=== PATIENT | male | born 1955 | race Asian ===

== ENCOUNTER 2020-12-06 08:39 | Day surgery (SDC) | payer MEDICARE, MEDICAID ==
[~2020-12-06] VITALS: Ht 167.6 cm; Wt 66.6 kg
[2020-12-06] MEDS ORDERED: INSU100I31 SQ (09:05)
[2020-12-06] MEDS ORDERED: FLO0.4C PO (09:05)
[2020-12-06] MEDS ORDERED: SUCR1TAB PO (09:05)
[2020-12-06] MEDS ORDERED: normal saline 1000ml 1,000 ML IV PRN (09:05)
[2020-12-06] MEDS ORDERED: PANT40TA54 PO (09:05)
[2020-12-06] MEDS ORDERED: HYDR-3964 PO (09:05)
[2020-12-06] MEDS ORDERED: PARO10TA4 PO (09:05)
[2020-12-06] MEDS ORDERED: TRAZ-251 PO (09:05)
[2020-12-06] MEDS ORDERED: ASPI-1053 PO (09:05)
[2020-12-06] MEDS ORDERED: CARV25TA3 PO (09:05)
[2020-12-06] MEDS ORDERED: ISOS30TA9 PO (09:05)
[2020-12-06] MEDS ORDERED: SIMV-45 PO (09:05)
[2020-12-06] MEDS ORDERED: LIRA0.6P2 SQ (09:05)
[2020-12-06 09:20] VITALS: BP 118/80
[2020-12-06 09:42] LABS: ALBUMIN 3.5 G/DL (3.4-5.0); ANION GAP 7 (8-16); BLOOD UREA NITROGEN 28 MG/DL (7-18); BUN/CREATININE RATIO 6.3 (5.4-32.0); CALCIUM 8.1 MG/DL (8.5-10.1); CHLORIDE 103 MMOL/L (99-107); CREATININE 4.48 MG/DL (0.60-1.10); GLUCOSE 130 MG/DL (70-104); SODIUM 142 MMOL/L (135-145); eGFR 13 ML/MIN
[2020-12-06 10:10] LABS: BASOPHILS % (AUTO) 0.5 % (0-1); EOSINOPHILS # (AUTO) 0.3 X10'3 (0-0.9); HEMATOCRIT 33.1 % (42.0-52.0); HEMOGLOBIN 11.2 g/dl (14.0-17.9); LYMPHOCYTES # (AUTO) 1.3 X10'3 (1.1-4.8); LYMPHOCYTES % (AUTO) 18.5 % (21-51); MEAN CORPUSCULAR HEMOGLOBIN 29.9 PG (27.0-31.0); MEAN CORPUSCULAR HGB CONC 33.8 g/dL (33.0-36.5); MEAN CORPUSCULAR VOLUME 88.6 FL (78-98); MEAN PLATELET VOLUME 6.5 FL (7.4-10.4); MONOCYTES # (AUTO) 0.7 X10'3 (0-0.9); MONOCYTES % (AUTO) 10.9 % (2-12); NEUTROPHILS # (AUTO) 4.5 X10'3 (1.8-7.7); NEUTROPHILS % (AUTO) 66.1 % (42-75); PLATELET COUNT 212 X10'3 (140-440); RED BLOOD COUNT 3.74 X10'6 (4.70-6.10); RED CELL DISTRIBUTION WIDTH 14.3 % (11.5-14.5); WHITE BLOOD COUNT 6.8 X10'3 (4.5-11.0)
[2020-12-06] MEDS ORDERED: LIDOcaine 1%/PF 5ML 10 MG/ML VIAL ONE (10:48)
[2020-12-06] MEDS ORDERED: fentaNYL/PF 50MCG/1 ML 2ML syringe ONE ×2 (10:48→11:42)
[2020-12-06] MEDS ORDERED: midazolam 1 mg/ML 2ml injection ONE ×3 (10:48→12:03)
[2020-12-06] MEDS ORDERED: heparin 1,000 UNITS/NS 500ml 500 ML ONE (10:48)
[2020-12-06] MEDS ORDERED: iohexol 300mg/ml 100ml inj. ONE (10:48)
[2020-12-06] MEDS ORDERED: heparin 1,000unit/ml 10ml vial 10 ML ONE (11:38)
[2020-12-06 12:45] VITALS: BP 120/78
[2020-12-06 13:00] VITALS: BP 140/79
[2020-12-06 13:15] VITALS: BP 146/75
[2020-12-06 13:30] VITALS: BP 149/85
[2020-12-06 13:45] VITALS: BP 155/80
== END 2020-12-06 13:55 | disposition home or self-care (01) ==
LOC: SSTAY O 08:39
PROVIDERS: ATTEND Preventive Medicine Aerospace Medicine
DX: T82.858A Stenosis of other vascular prosthetic devices, implants and grafts, initial encounter (principal); E11.22 Type 2 diabetes mellitus with diabetic chronic kidney disease; I13.2 Hypertensive heart and chronic kidney disease with heart failure and with stage 5 chronic kidney disease, or end stage renal disease; N18.6 End stage renal disease; I50.9 Heart failure, unspecified; E78.5 Hyperlipidemia, unspecified; G47.30 Sleep apnea, unspecified; F17.210 Nicotine dependence, cigarettes, uncomplicated; Z95.0 Presence of cardiac pacemaker; Y83.8 Other surgical procedures as the cause of abnormal reaction of the patient, or of later complication, without mention of misadventure at the time of the procedure; Y92.89 Other specified places as the place of occurrence of the external cause
CPT/HCPCS: 36415; 36901; 80048; 82948; 85025; 85610; 99152; 99153; C1769; C1894; J1644; J2250; J3010; Q9967

== ENCOUNTER 2021-07-18 08:27 | Day surgery (SDC) | payer MEDICARE, MEDICAID ==
[2021-07-18] VITALS (7 sets, daily range): BP systolic 146–166; BP diastolic 80–106
[~2021-07-18] VITALS: Ht 167.6 cm; Wt 65.6 kg
[~2021-07-18 08:27] MED LIST: ASPI-1053 PO; CARV25TA3 PO; FLO0.4C PO; HYDR-3964 PO; INSU100I31 SQ; ISOS30TA9 PO; LIRA0.6P2 SQ; PANT40TA54 PO; PARO10TA4 PO; SIMV-45 PO; SUCR1TAB PO; TRAZ-251 PO
[2021-07-18] MEDS ORDERED: normal saline 1000ml 1,000 ML IV PRN (08:55)
[2021-07-18] MEDS ORDERED: METO5TAB98 PO (09:08)
[2021-07-18 09:13] LABS: BASOPHILS % (AUTO) 0.6 % (0-1); EOSINOPHILS # (AUTO) 0.2 X10'3 (0-0.9); EOSINOPHILS % (AUTO) 2.3 % (0-6); HEMATOCRIT 33.4 % (42.0-52.0); LYMPHOCYTES % (AUTO) 12.1 % (21-51); MEAN CORPUSCULAR HEMOGLOBIN 29.6 PG (27.0-31.0); MEAN CORPUSCULAR HGB CONC 32.9 g/dL (33.0-36.5); MEAN CORPUSCULAR VOLUME 89.9 FL (78-98); MEAN PLATELET VOLUME 6.3 FL (7.4-10.4); MONOCYTES # (AUTO) 0.7 X10'3 (0-0.9); MONOCYTES % (AUTO) 8.3 % (2-12); NEUTROPHILS # (AUTO) 6.2 X10'3 (1.8-7.7); NEUTROPHILS % (AUTO) 76.7 % (42-75); PLATELET COUNT 192 X10'3 (140-440); RED BLOOD COUNT 3.71 X10'6 (4.70-6.10); RED CELL DISTRIBUTION WIDTH 13.7 % (11.5-14.5); WHITE BLOOD COUNT 8.1 X10'3 (4.5-11.0)
[2021-07-18 09:23] LABS: ALANINE AMINOTRANSFERASE 24 U/L (12-78); ALBUMIN 3.8 G/DL (3.4-5.0); ALBUMIN/GLOBULIN RATIO 0.8 (1.1-1.5); ALKALINE PHOSPHATASE 79 IU/L (46-116); ASPARTATE AMINO TRANSFERASE 17 U/L (10-37); BLOOD UREA NITROGEN 31 MG/DL (7-18); BUN/CREATININE RATIO 5.9 (5.4-32.0); CALCIUM 9.4 MG/DL (8.5-10.1); CHLORIDE 97 MMOL/L (99-107); CREATININE 5.27 MG/DL (0.60-1.10); GLUCOSE 168 MG/DL (70-104); POTASSIUM 4.2 MMOL/L (3.5-5.1); SODIUM 140 MMOL/L (135-145); TOTAL PROTEIN 8.5 G/DL (6.4-8.2); eGFR 11 ML/MIN
[2021-07-18 09:51] LABS: ANION GAP 14 (8-16); BILIRUBIN,TOTAL 0.4 MG/DL (0.1-1.0); TOTAL CARBON DIOXIDE 29.3 MMOL/L (24-32)
[2021-07-18] MEDS ORDERED: fentaNYL/PF 50MCG/1 ML 2ML syringe ONE ×2 (09:52→10:58)
[2021-07-18] MEDS ORDERED: midazolam 1 mg/ML 2ml injection ONE ×3 (09:52→11:33)
[2021-07-18] MEDS ORDERED: iohexol 300mg/ml 100ml inj. ONE ×2 (10:13→11:48)
[2021-07-18] MEDS ORDERED: heparin 1,000 UNITS/NS 500ml 500 ML ONE (10:13)
[2021-07-18] MEDS ORDERED: LIDOcaine 1% (10mg/ml)w/preservative inj. 20ml MDV ONE (10:13)
[2021-07-18] MEDS ORDERED: ondansetron/PF 4mg/2ml inj ONE (12:18)
[2021-07-18] MEDS ORDERED: cefazolin/dext.iso 2gm/100ml 100 ML IV ONE (15:15)
[2021-07-18] MEDS ORDERED: ceFAZolin/D5W- 1GM premix 100 ML IV ONE (15:18)
[2021-07-18] MEDS ORDERED: ceFAZolin 2gm in dextrose, iso 100 ML IV ONE (15:19)
[2021-07-18] MEDS ORDERED: ceFAZolin 2gm in dextrose, iso 50 ML IV ONE (15:19)
== END 2021-07-18 14:17 | disposition home or self-care (01) ==
LOC: SSTAY O 08:27
PROVIDERS: ATTEND Radiology Vascular & Interventional Radiology
DX: T82.590A Other mechanical complication of surgically created arteriovenous fistula, initial encounter (principal); E11.22 Type 2 diabetes mellitus with diabetic chronic kidney disease; N18.6 End stage renal disease; Z72.89 Other problems related to lifestyle; Z87.891 Personal history of nicotine dependence; Z79.01 Long term (current) use of anticoagulants; Z79.899 Other long term (current) drug therapy; Y83.2 Surgical operation with anastomosis, bypass or graft as the cause of abnormal reaction of the patient, or of later complication, without mention of misadventure at the time of the procedure; Y92.89 Other specified places as the place of occurrence of the external cause
CPT/HCPCS: 36415; 36901; 36907; 76937; 80053; 82948; 85025; 85610; 99152; 99153; C1725; C1769; C1887; C1894; J1644; J2250; J2405; J3010; J3490; Q9967

== ENCOUNTER 2021-11-05 10:58 | Day surgery (SDC) | payer MEDICARE, MEDICAID ==
[~2021-11-05] VITALS: Ht 167.6 cm; Wt 64.6 kg
[~2021-11-05 10:58] MED LIST changes: +METO5TAB98 PO; -PARO10TA4 PO
[2021-11-05 11:35] VITALS: BP 163/97
[2021-11-05] MEDS ORDERED: normal saline 1000ml 1,000 ML IV SCH (11:35)
[2021-11-05] MEDS ORDERED: dextrose 50%-water 50ml dispensing syringe IV ONE (11:55)
--- NOTE | 2021-11-05 11:55 | NUR ---
Blood glucose is 54. 25g Dextrose 50% administered. Will continue to monitor.
[2021-11-05] MEDS ORDERED: INSU100I31 SQ ×2 (12:04→12:05)
[2021-11-05 12:15] LABS: BASOPHILS # (AUTO) 0.1 X10'3 (0-0.2); BASOPHILS % (AUTO) 1.1 % (0-1); EOSINOPHILS # (AUTO) 0.1 X10'3 (0-0.9); HEMOGLOBIN 7.7 g/dl (14.0-17.9); LYMPHOCYTES # (AUTO) 1.2 X10'3 (1.1-4.8)
[2021-11-05 12:16] LABS: EOSINOPHILS % (AUTO) 1.5 % (0-6); HEMATOCRIT 22.3 % (42.0-52.0); MEAN CORPUSCULAR HGB CONC 34.3 g/dL (33.0-36.5); MEAN CORPUSCULAR VOLUME 87.4 FL (78-98); MONOCYTES # (AUTO) 0.7 X10'3 (0-0.9); MONOCYTES % (AUTO) 7.1 % (2-12); NEUTROPHILS # (AUTO) 7.1 X10'3 (1.8-7.7); NEUTROPHILS % (AUTO) 77.3 % (42-75); PLATELET COUNT 350 X10'3 (140-440); RED BLOOD COUNT 2.55 X10'6 (4.70-6.10); RED CELL DISTRIBUTION WIDTH 15.5 % (11.5-14.5); WHITE BLOOD COUNT 9.2 X10'3 (4.5-11.0)
[2021-11-05 12:21] LABS: ALBUMIN 3.5 G/DL (3.4-5.0); ANION GAP 9 (8-16); BLOOD UREA NITROGEN 29 MG/DL (7-18); BUN/CREATININE RATIO 5.6 (5.4-32.0); CALCIUM 8.9 MG/DL (8.5-10.1); CHLORIDE 100 MMOL/L (99-107); CREATININE 5.15 MG/DL (0.60-1.10); GLUCOSE 52 MG/DL (70-104); POTASSIUM 4.4 MMOL/L (3.5-5.1); SODIUM 142 MMOL/L (135-145); TOTAL CARBON DIOXIDE 33.5 MMOL/L (24-32); eGFR 11 ML/MIN
[2021-11-05] MEDS ORDERED: LIDOcaine 1%/PF 5ML 10 MG/ML VIAL ONE (13:34)
[2021-11-05] MEDS ORDERED: midazolam 1 mg/ML 2ml injection ONE (13:34)
[2021-11-05] MEDS ORDERED: fentaNYL/PF 50MCG/1 ML 2ML syringe ONE (13:34)
[2021-11-05] MEDS ORDERED: heparin 1,000 UNITS/NS 500ml 500 ML ONE (14:12)
[2021-11-05] MEDS ORDERED: iohexol 300 MG/1 ML 50ml polymer ONE ×2 (14:13→14:29)
[2021-11-05 15:42] VITALS: BP 190/92
--- NOTE | 2021-11-05 15:42 | NUR ---
Bedside report received from [facility]. Patient vital signs stable. Fistula to left lower arm stable with internal stitches in place. No bleeding noted.
[2021-11-05 15:57] VITALS: BP 175/145
[2021-11-05 16:12] VITALS: BP 187/99
[2021-11-05 16:27] VITALS: BP 179/92
[2021-11-05 16:42] VITALS: BP 173/81
== END 2021-11-05 17:10 | disposition home or self-care (01) ==
LOC: SSTAY O 10:58
PROVIDERS: ATTEND Preventive Medicine Aerospace Medicine
DX: T82.41XA Breakdown (mechanical) of vascular dialysis catheter, initial encounter (principal); I87.1 Compression of vein; Y83.8 Other surgical procedures as the cause of abnormal reaction of the patient, or of later complication, without mention of misadventure at the time of the procedure; Z79.899 Other long term (current) drug therapy; N18.6 End stage renal disease
CPT/HCPCS: 36902; 36907; 76937; 80048; 82948; 85025; 85610; 99152; 99153; C1725; C1769; C1894; J1644; J2250; J3010; J3490; J7030; Q9967; A6258; C2623

== ENCOUNTER 2024-01-26 23:50 | Inpatient (IN) | payer BC, MEDICAID ==
[~2024-01-26] VITALS: Ht 167.6 cm; Wt 65.2 kg
[2024-01-27] VITALS (13 sets, daily range): BP systolic 111–190; BP diastolic 53–84; PULSE 72–85; RESP 16–24; TEMP 97.8–98.6; O2SAT 92–98
[2024-01-27 01:50] LABS: BASOPHILS % (AUTO) 0.3 % (0-1); EOSINOPHILS # (AUTO) 0.1 X10'3 (0-0.9); EOSINOPHILS % (AUTO) 1.4 % (0-6); HEMATOCRIT 29.7 % (42.0-52.0); HEMOGLOBIN 9.9 g/dl (14.0-17.9); LYMPHOCYTES % (AUTO) 11.5 % (21-51); MEAN CORPUSCULAR HEMOGLOBIN 30.1 PG (27.0-31.0); MEAN CORPUSCULAR HGB CONC 33.3 g/dL (33.0-36.5); MEAN CORPUSCULAR VOLUME 90.4 FL (78-98); MEAN PLATELET VOLUME 6.7 FL (7.4-10.4); MONOCYTES # (AUTO) 1.4 X10'3 (0-0.9); MONOCYTES % (AUTO) 15.7 % (2-12); NEUTROPHILS # (AUTO) 6.5 X10'3 (1.8-7.7); NEUTROPHILS % (AUTO) 71.1 % (42-75); PLATELET COUNT 133 X10'3 (140-440); RED BLOOD COUNT 3.28 X10'6 (4.70-6.10); RED CELL DISTRIBUTION WIDTH 15.1 % (11.5-14.5); WHITE BLOOD COUNT 9.1 X10'3 (4.5-11.0)
[2024-01-27 01:53] LABS: ANION GAP 6 (8-16); BLOOD UREA NITROGEN 44 MG/DL (7-18); CALCIUM 8.2 MG/DL (8.5-10.1); CHLORIDE 98 MMOL/L (99-107); CREATININE 6.27 MG/DL (0.60-1.10); GLUCOSE 66 MG/DL (70-104); POTASSIUM 4.1 MMOL/L (3.5-5.1); SODIUM 137 MMOL/L (135-145); TOTAL CARBON DIOXIDE 32.9 MMOL/L (24-32); eGFR 9 ML/MIN
[2024-01-27] MEDS ORDERED: potassium Cl 20 mEq SR tablet PO PRN ×2 (02:25)
[2024-01-27] MEDS ORDERED: magnesium sulf-water 4G/100mL 100 ML IV PRN (02:25)
[2024-01-27] MEDS ORDERED: magnesium hydroxide 30ml (MOM) UD suspension PO PRN (02:25)
[2024-01-27] MEDS ORDERED: ondansetron/PF 4mg/2ml inj IV PRN (02:25)
[2024-01-27] MEDS ORDERED: magnesium Cl slow-release 64mg tablet PO PRN (02:25)
[2024-01-27] MEDS ORDERED: potassium Cl 40MEQ/1/2NS 520ml 520 ML IV PRN (02:25)
[2024-01-27] MEDS ORDERED: mag hydrox/Alum hydrox/simeth 30ml oral suspension PO PRN (02:25)
[2024-01-27] MEDS ORDERED: magnesium sulf-water 2g/50mL 50 ML IV PRN (02:25)
[2024-01-27] MEDS ORDERED: acetaminophen 325mg tablet PO PRN (02:25)
[2024-01-27] MEDS ORDERED: glucagon, human recombinant 1mg kit SUBCUT PRN (02:30)
[2024-01-27] MEDS ORDERED: DEXTROSE 15 GM of carb/4 tabs (each vial/BOTTLE has 4 tablets) PO PRN ×2 (02:30)
[2024-01-27] MEDS ORDERED: dextrose 50%-water 50ml dispensing syringe IV PRN ×2 (02:30)
[2024-01-27 02:48] LABS: MAGNESIUM 2.1 MG/DL (1.5-2.4); PHOSPHORUS 3.7 MG/DL (2.3-4.5)
[2024-01-27 02:52] LABS: HEMOGLOBIN A1C 6.3 % (4.5-6.2)
[2024-01-27] MEDS: azithromycin/NS 500mg/250ml 250 ML IV SCH (04:33)
[2024-01-27] MEDS: K and/or MAG REPLACEMENT MC SCH (08:00)
[2024-01-27] MEDS: LIRAGLUTIDE 0.6 MG/0.1 ML SQ SCH (08:00)
[2024-01-27] MEDS: INSULIN LISPRO 100 UNIT/ML INSULN.PEN MULTI-DOSE SQ SCH (08:51)
[2024-01-27] MEDS: heparin, porcine 5000 units/ml vial SQ SCH (08:55)
[2024-01-27] MEDS: aspirin 81mg tab.chew PO SCH (08:58)
[2024-01-27] MEDS: tamsulosin 0.4mg capsule PO SCH (08:58)
[2024-01-27] MEDS: isosorbide dinitrate 30mg tablet PO SCH (08:59)
[2024-01-27] MEDS: carVEDilol 12.5mg tablet PO SCH (09:06)
[2024-01-27] MEDS: pantoprazole 40mg Tablet.DR PO SCH (09:19)
[2024-01-27] MEDS: CefTRIAXone/D5W-Rocephin 1gm 50 ML IV SCH (09:26)
[2024-01-27] MEDS ORDERED: CARB1TAB36 PO (11:01)
[2024-01-27] MEDS: ipratropium/albuterol 3ml nebule NEB SCH (12:57)
[2024-01-27] MEDS: heparin 1,000 units/ml 10ml inj IV ONE (13:55)
[2024-01-27] MEDS: EPOETIN ALFA-EPBX 20,000 UNIT/ML 1 ML MDV IV ONE (13:55)
[2024-01-27] MEDS: heparin 1,000unit/ml 10ml vial 10 ML IV ONE (13:55)
[2024-01-27] MEDS ORDERED: albumin (human) 25% 100ml IV 100 ML IV PRN (13:55)
[2024-01-27] MEDS: hydrALAZINE 20mg/ml inj. IV SCH (14:00)
[2024-01-27] MEDS: methylPREDNISolone sod succ 125mg/2ml vial IV SCH (14:12)
[2024-01-27] MEDS: insulin glargine (Lantus) pen - multi-dose SQ SCH (23:03)
[2024-01-27] MEDS: traZODone 50mg tablet PO SCH (23:03)
[2024-01-27] MEDS: simvastatin 20mg tablet PO SCH (23:03)
[2024-01-28] VITALS (24 sets, daily range): BP systolic 100–143; BP diastolic 49–78; PULSE 68–88; RESP 12–20; TEMP 96.8–99.2; O2SAT 92–100
[2024-01-28 06:51] LABS: BASOPHILS % (AUTO) 0 % (0-1); EOSINOPHILS % (AUTO) 0 % (0-6); HEMATOCRIT 30.3 % (42.0-52.0); HEMOGLOBIN 10.1 g/dl (14.0-17.9); LYMPHOCYTES # (AUTO) 0.7 X10'3 (1.1-4.8); LYMPHOCYTES % (AUTO) 11.2 % (21-51); MEAN CORPUSCULAR HGB CONC 33.3 g/dL (33.0-36.5); MEAN CORPUSCULAR VOLUME 90.2 FL (78-98); MEAN PLATELET VOLUME 7.5 FL (7.4-10.4); MONOCYTES # (AUTO) 0.2 X10'3 (0-0.9); NEUTROPHILS # (AUTO) 5.4 X10'3 (1.8-7.7); NEUTROPHILS % (AUTO) 85.8 % (42-75); PLATELET COUNT 152 X10'3 (140-440); RED BLOOD COUNT 3.36 X10'6 (4.70-6.10); RED CELL DISTRIBUTION WIDTH 14.8 % (11.5-14.5); WHITE BLOOD COUNT 6.3 X10'3 (4.5-11.0)
[2024-01-28 07:05] LABS: ANION GAP 12 (8-16); BLOOD UREA NITROGEN 74 MG/DL (7-18); BUN/CREATININE RATIO 8.9 (10.0-20.0); CALCIUM 8.6 MG/DL (8.5-10.1); CHLORIDE 98 MMOL/L (99-107); CREATININE 8.36 MG/DL (0.60-1.10); GLUCOSE 171 MG/DL (70-104); POTASSIUM 4.4 MMOL/L (3.5-5.1); SODIUM 136 MMOL/L (135-145); TOTAL CARBON DIOXIDE 25.6 MMOL/L (24-32); eCRCL 8 ML/MIN; eGFR 6 ML/MIN
[2024-01-28] MEDS: HYDROcodone/acetaminophen 5mg/325mg tablet PO PRN (13:04)
[2024-01-28] MEDS: EPOETIN ALFA-EPBX 20,000 UNIT/ML 1 ML MDV IV ONE (13:11)
[2024-01-29] VITALS (20 sets, daily range): BP systolic 120–152; BP diastolic 59–72; PULSE 68–83; RESP 14–22; TEMP 97.3–98.8; O2SAT 94–98
[2024-01-29 06:36] LABS: BASOPHILS % (AUTO) 0 % (0-1); EOSINOPHILS % (AUTO) 0 % (0-6); HEMATOCRIT 30.5 % (42.0-52.0); HEMOGLOBIN 10.2 g/dl (14.0-17.9); LYMPHOCYTES # (AUTO) 0.4 X10'3 (1.1-4.8); LYMPHOCYTES % (AUTO) 6.1 % (21-51); MEAN CORPUSCULAR HGB CONC 33.4 g/dL (33.0-36.5); MEAN CORPUSCULAR VOLUME 89.9 FL (78-98); MEAN PLATELET VOLUME 7.3 FL (7.4-10.4); MONOCYTES # (AUTO) 0.3 X10'3 (0-0.9); MONOCYTES % (AUTO) 4.6 % (2-12); NEUTROPHILS # (AUTO) 5.7 X10'3 (1.8-7.7); NEUTROPHILS % (AUTO) 89.3 % (42-75); PLATELET COUNT 163 X10'3 (140-440); RED CELL DISTRIBUTION WIDTH 15.2 % (11.5-14.5); WHITE BLOOD COUNT 6.4 X10'3 (4.5-11.0)
[2024-01-29 06:50] LABS: ALBUMIN 2.9 G/DL (3.4-5.0); ANION GAP 9 (8-16); BLOOD UREA NITROGEN 57 MG/DL (7-18); BUN/CREATININE RATIO 8.1 (10.0-20.0); CALCIUM 8.5 MG/DL (8.5-10.1); CHLORIDE 96 MMOL/L (99-107); CREATININE 7.05 MG/DL (0.60-1.10); GLUCOSE 297 MG/DL (70-104); POTASSIUM 4.3 MMOL/L (3.5-5.1); SODIUM 131 MMOL/L (135-145); eCRCL 9 ML/MIN; eGFR 8 ML/MIN
[2024-01-29 07:11] LABS: HBSAG SCREEN Negative (Negative)
[2024-01-30] VITALS (18 sets, daily range): BP systolic 82–151; BP diastolic 42–61; PULSE 74–87; RESP 12–20; TEMP 97.4–98.2; O2SAT 93–99
[2024-01-30 09:24] LABS: BASOPHILS % (AUTO) 0 % (0-1); EOSINOPHILS % (AUTO) 0 % (0-6); HEMATOCRIT 30.1 % (42.0-52.0); HEMOGLOBIN 10.1 g/dl (14.0-17.9); LYMPHOCYTES # (AUTO) 0.5 X10'3 (1.1-4.8); LYMPHOCYTES % (AUTO) 6.6 % (21-51); MEAN CORPUSCULAR HEMOGLOBIN 30.2 PG (27.0-31.0); MEAN CORPUSCULAR HGB CONC 33.6 g/dL (33.0-36.5); MEAN CORPUSCULAR VOLUME 89.8 FL (78-98); MEAN PLATELET VOLUME 7.4 FL (7.4-10.4); MONOCYTES # (AUTO) 0.3 X10'3 (0-0.9); MONOCYTES % (AUTO) 4.3 % (2-12); NEUTROPHILS # (AUTO) 6.9 X10'3 (1.8-7.7); NEUTROPHILS % (AUTO) 89.1 % (42-75); PLATELET COUNT 166 X10'3 (140-440); RED BLOOD COUNT 3.35 X10'6 (4.70-6.10); RED CELL DISTRIBUTION WIDTH 14.8 % (11.5-14.5); WHITE BLOOD COUNT 7.8 X10'3 (4.5-11.0)
[2024-01-30 09:32] LABS: ANION GAP 17 (8-16); BLOOD UREA NITROGEN 88 MG/DL (7-18); BUN/CREATININE RATIO 9.8 (10.0-20.0); CALCIUM 8.1 MG/DL (8.5-10.1); CHLORIDE 93 MMOL/L (99-107); CREATININE 8.99 MG/DL (0.60-1.10); GLUCOSE 285 MG/DL (70-104); POTASSIUM 4.2 MMOL/L (3.5-5.1); SODIUM 131 MMOL/L (135-145); TOTAL CARBON DIOXIDE 21.5 MMOL/L (24-32); eCRCL 7 ML/MIN; eGFR 6 ML/MIN
[2024-01-30] MEDS ORDERED: hydrALAZINE 20mg/ml inj. IV PRN (10:05)
[2024-01-30] MEDS: insulin glargine (Lantus) pen - multi-dose SQ SCH (21:40)
[2024-01-30] MEDS: prednisone 10mg tablet PO SCH (21:46)
[2024-01-31] VITALS (24 sets, daily range): BP systolic 100–159; BP diastolic 49–69; PULSE 72–88; RESP 15–19; TEMP 97.7–98.5; O2SAT 95–100
[2024-01-31 06:53] LABS: ALBUMIN 2.9 G/DL (3.4-5.0); ANION GAP 16 (8-16); BASOPHILS % (AUTO) 0 % (0-1); BLOOD UREA NITROGEN 118 MG/DL (7-18); BUN/CREATININE RATIO 11.3 (10.0-20.0); CALCIUM 7.7 MG/DL (8.5-10.1); CHLORIDE 91 MMOL/L (99-107); CREATININE 10.47 MG/DL (0.60-1.10); EOSINOPHILS % (AUTO) 0 % (0-6); GLUCOSE 303 MG/DL (70-104); HEMATOCRIT 28.3 % (42.0-52.0); HEMOGLOBIN 9.4 g/dl (14.0-17.9); LYMPHOCYTES # (AUTO) 0.4 X10'3 (1.1-4.8); LYMPHOCYTES % (AUTO) 6.8 % (21-51); MEAN CORPUSCULAR HEMOGLOBIN 29.8 PG (27.0-31.0); MEAN CORPUSCULAR HGB CONC 33.3 g/dL (33.0-36.5); MEAN CORPUSCULAR VOLUME 89.4 FL (78-98); MEAN PLATELET VOLUME 7.3 FL (7.4-10.4); MONOCYTES # (AUTO) 0.5 X10'3 (0-0.9); MONOCYTES % (AUTO) 8.3 % (2-12); NEUTROPHILS # (AUTO) 4.6 X10'3 (1.8-7.7); NEUTROPHILS % (AUTO) 84.9 % (42-75); PLATELET COUNT 163 X10'3 (140-440); POTASSIUM 4.2 MMOL/L (3.5-5.1); RED BLOOD COUNT 3.17 X10'6 (4.70-6.10); RED CELL DISTRIBUTION WIDTH 14.9 % (11.5-14.5); SODIUM 129 MMOL/L (135-145); TOTAL CARBON DIOXIDE 21.8 MMOL/L (24-32); WHITE BLOOD COUNT 5.5 X10'3 (4.5-11.0); eCRCL 6 ML/MIN; eGFR 5 ML/MIN
[2024-01-31] MEDS: levoFLOXACIN 250mg tablet PO SCH (11:38)
[2024-01-31] MEDS: heparin 1,000 units/ml 10ml inj HE ONE (14:47)
[2024-01-31] MEDS: heparin 1,000 units/ml 10ml inj IV ONE (16:11)
[2024-01-31] MEDS: HYDROcodone/acetaminophen 5mg/325mg tablet PO PRN (19:54)
[2024-02-01] VITALS (8 sets, daily range): BP systolic 105–136; BP diastolic 53–68; PULSE 79–86; RESP 15–18; TEMP 98.4; O2SAT 97–98
[2024-02-01 07:15] LABS: BASOPHILS % (AUTO) 0.1 % (0-1); EOSINOPHILS % (AUTO) 0 % (0-6); LYMPHOCYTES # (AUTO) 0.4 X10'3 (1.1-4.8); LYMPHOCYTES % (AUTO) 7.4 % (21-51); MEAN CORPUSCULAR HEMOGLOBIN 29.7 PG (27.0-31.0); MEAN CORPUSCULAR HGB CONC 33.2 g/dL (33.0-36.5); MEAN CORPUSCULAR VOLUME 89.3 FL (78-98); MEAN PLATELET VOLUME 7.4 FL (7.4-10.4); MONOCYTES # (AUTO) 0.5 X10'3 (0-0.9); MONOCYTES % (AUTO) 8.7 % (2-12); NEUTROPHILS # (AUTO) 5.1 X10'3 (1.8-7.7); NEUTROPHILS % (AUTO) 83.8 % (42-75); PLATELET COUNT 198 X10'3 (140-440); RED BLOOD COUNT 3.36 X10'6 (4.70-6.10); RED CELL DISTRIBUTION WIDTH 14.8 % (11.5-14.5); WHITE BLOOD COUNT 6.1 X10'3 (4.5-11.0)
[2024-02-01 07:27] LABS: ALBUMIN 3.1 G/DL (3.4-5.0); ANION GAP 11 (8-16); BLOOD UREA NITROGEN 67 MG/DL (7-18); BUN/CREATININE RATIO 9.9 (10.0-20.0); CALCIUM 8.2 MG/DL (8.5-10.1); CHLORIDE 95 MMOL/L (99-107); CREATININE 6.77 MG/DL (0.60-1.10); GLUCOSE 238 MG/DL (70-104); SODIUM 132 MMOL/L (135-145); eCRCL 9 ML/MIN; eGFR 8 ML/MIN
== END 2024-02-01 14:40 | disposition home health service (06) | DRG 177 ==
LOC: ER 23:51 → ED HOLD 01-27 02:25 → ORTHO 4S 01-27 06:56
PROVIDERS: ADMIT Surgery Surgical Critical Care; ATTEND Nurse Practitioner Family
PROC: 5A1D70Z Performance of Urinary Filtration, Intermittent, Less than 6 Hours Per Day (ICD-10-PCS; principal; 2024-01-28)
PROC: 5A1D70Z Performance of Urinary Filtration, Intermittent, Less than 6 Hours Per Day (ICD-10-PCS; 2024-01-31)
DX: J15.69 Pneumonia due to other Gram-negative bacteria (principal); N18.6 End stage renal disease; J90 Pleural effusion, not elsewhere classified; I12.0 Hypertensive chronic kidney disease with stage 5 chronic kidney disease or end stage renal disease; M54.50 Low back pain, unspecified; Z20.822 Contact with and (suspected) exposure to COVID-19; N40.0 Benign prostatic hyperplasia without lower urinary tract symptoms; J15.9 Unspecified bacterial pneumonia; H54.8 Legal blindness, as defined in USA; D63.1 Anemia in chronic kidney disease; E11.22 Type 2 diabetes mellitus with diabetic chronic kidney disease; E11.65 Type 2 diabetes mellitus with hyperglycemia; E11.40 Type 2 diabetes mellitus with diabetic neuropathy, unspecified; E78.5 Hyperlipidemia, unspecified; Z99.2 Dependence on renal dialysis; Z79.82 Long term (current) use of aspirin; Z79.4 Long term (current) use of insulin; Z79.899 Other long term (current) drug therapy; Z88.8 Allergy status to other drugs, medicaments and biological substances; Z87.891 Personal history of nicotine dependence; Z95.0 Presence of cardiac pacemaker; K21.9 Gastro-esophageal reflux disease without esophagitis
CPT/HCPCS: 36415; 71045; 80048; 82948; 83036; 83605; 83735; 84100; 84145; 85025; 87070; 87081; 87340; 87811; 93005; 94640; 94760; 97110; 97116; 97161; 97530; 99285; A6258; E1594; G0257; G0378; J0360; J0456; J0696; J1644; J1815; J2919; J7030; J7040; J7512; J8597; Q4081

== ENCOUNTER 2024-04-06 20:10 | Inpatient (IN) | payer BC, MEDICAID ==
[~2024-04-06] VITALS: Ht 167.6 cm; Wt 67.7 kg
[~2024-04-06 20:10] MED LIST changes: +CARB1TAB36 PO
[2024-04-06] MEDS ORDERED: sodium chloride inj. 154 MEQ in Dextrose 10%-water IV solution 961.5 ML IV SCH (21:25)
[2024-04-06] MEDS: DEXTROSE 10 % AND 0.45 % NACL 1,000 ML IV SCH (21:58)
[2024-04-06 22:26] LABS: BASOPHILS % (AUTO) 0.2 % (0-1); EOSINOPHILS % (AUTO) 0.1 % (0-6); HEMATOCRIT 28.4 % (42.0-52.0); HEMOGLOBIN 9.7 g/dl (14.0-17.9); LYMPHOCYTES # (AUTO) 1.3 X10'3 (1.1-4.8); LYMPHOCYTES % (AUTO) 9.5 % (21-51); MEAN CORPUSCULAR HEMOGLOBIN 30.8 PG (27.0-31.0); MEAN CORPUSCULAR HGB CONC 34.2 g/dL (33.0-36.5); MEAN CORPUSCULAR VOLUME 89.9 FL (78-98); MEAN PLATELET VOLUME 6.4 FL (7.4-10.4); MONOCYTES # (AUTO) 1.3 X10'3 (0-0.9); MONOCYTES % (AUTO) 9.5 % (2-12); NEUTROPHILS # (AUTO) 11.2 X10'3 (1.8-7.7); NEUTROPHILS % (AUTO) 80.7 % (42-75); PLATELET COUNT 164 X10'3 (140-440); RED BLOOD COUNT 3.16 X10'6 (4.70-6.10); RED CELL DISTRIBUTION WIDTH 14.8 % (11.5-14.5); WHITE BLOOD COUNT 13.9 X10'3 (4.5-11.0)
[2024-04-06 22:41] LABS: ALANINE AMINOTRANSFERASE 8 U/L (12-78); ALBUMIN 3.2 G/DL (3.4-5.0); ALBUMIN/GLOBULIN RATIO 0.9 (1.1-1.5); ALKALINE PHOSPHATASE 78 IU/L (46-116); ANION GAP 8 (8-16); ASPARTATE AMINO TRANSFERASE 13 U/L (10-37); BILIRUBIN,TOTAL 0.5 MG/DL (0.1-1.0); BLOOD UREA NITROGEN 43 MG/DL (7-18); BUN/CREATININE RATIO 5.7 (10.0-20.0); CALCIUM 8.9 MG/DL (8.5-10.1); CHLORIDE 98 MMOL/L (99-107); CREATININE 7.53 MG/DL (0.60-1.10); GLUCOSE 349 MG/DL (70-104); POTASSIUM 3.6 MMOL/L (3.5-5.1); SODIUM 135 MMOL/L (135-145); TOTAL CARBON DIOXIDE 28.8 MMOL/L (24-32); TOTAL PROTEIN 6.9 G/DL (6.4-8.2); eCRCL 8 ML/MIN; eGFR 7 ML/MIN
[2024-04-06 22:47] LABS: PRO BRAIN NATRIURETIC PEPTIDE 5920 PG/ML (0-125)
[2024-04-06] MEDS ORDERED: magnesium Cl slow-release 64mg tablet PO PRN (23:10)
[2024-04-06] MEDS ORDERED: magnesium sulf-water 2g/50mL 50 ML IV PRN (23:10)
[2024-04-06] MEDS ORDERED: potassium Cl 20 mEq SR tablet PO PRN ×2 (23:10)
[2024-04-06] MEDS ORDERED: potassium Cl 40MEQ/1/2NS 520ml 520 ML IV PRN (23:10)
[2024-04-06] MEDS ORDERED: magnesium sulf-water 4G/100mL 100 ML IV PRN (23:10)
[2024-04-07 00:49] LABS: ALBUMIN 3.2 G/DL (3.4-5.0); ANION GAP 8 (8-16); BLOOD UREA NITROGEN 45 MG/DL (7-18); BUN/CREATININE RATIO 5.9 (10.0-20.0); CALCIUM 8.9 MG/DL (8.5-10.1); CHLORIDE 100 MMOL/L (99-107); CREATININE 7.57 MG/DL (0.60-1.10); GLUCOSE 72 MG/DL (70-104); POTASSIUM 3.6 MMOL/L (3.5-5.1); SODIUM 137 MMOL/L (135-145); TOTAL CARBON DIOXIDE 29.4 MMOL/L (24-32); eCRCL 8 ML/MIN; eGFR 7 ML/MIN
[2024-04-07] MEDS ORDERED: ONDA-243 PO (03:13)
[2024-04-07] MEDS ORDERED: TRAZ-256 PO (03:16)
[2024-04-07] MEDS ORDERED: ISOS30TA9 PO (03:17)
[2024-04-07 03:24] LABS: BASOPHILS % (AUTO) 0.2 % (0-1); EOSINOPHILS % (AUTO) 0.2 % (0-6); HEMATOCRIT 28.8 % (42.0-52.0); HEMOGLOBIN 9.9 g/dl (14.0-17.9); LYMPHOCYTES # (AUTO) 1.2 X10'3 (1.1-4.8); LYMPHOCYTES % (AUTO) 9.9 % (21-51); MEAN CORPUSCULAR HGB CONC 34.4 g/dL (33.0-36.5); MEAN CORPUSCULAR VOLUME 90.1 FL (78-98); MEAN PLATELET VOLUME 6.2 FL (7.4-10.4); MONOCYTES # (AUTO) 1.3 X10'3 (0-0.9); MONOCYTES % (AUTO) 10.2 % (2-12); NEUTROPHILS % (AUTO) 79.5 % (42-75); PLATELET COUNT 183 X10'3 (140-440); RED CELL DISTRIBUTION WIDTH 14.9 % (11.5-14.5); WHITE BLOOD COUNT 12.6 X10'3 (4.5-11.0)
[2024-04-07] MEDS ORDERED: CHOL10006 PO (03:24)
[2024-04-07] MEDS: CefTRIAXone/D5W-Rocephin 1gm 50 ML IV SCH (03:32)
[2024-04-07 03:39] LABS: ALBUMIN 3.4 G/DL (3.4-5.0); ANION GAP 7 (8-16); BLOOD UREA NITROGEN 45 MG/DL (7-18); BUN/CREATININE RATIO 5.5 (10.0-20.0); CALCIUM 8.6 MG/DL (8.5-10.1); CHLORIDE 100 MMOL/L (99-107); CREATININE 8.13 MG/DL (0.60-1.10); GLUCOSE 96 MG/DL (70-104); MAGNESIUM 2.1 MG/DL (1.5-2.4); PHOSPHORUS 2.6 MG/DL (2.3-4.5); POTASSIUM 3.5 MMOL/L (3.5-5.1); SODIUM 138 MMOL/L (135-145); TOTAL CARBON DIOXIDE 31.2 MMOL/L (24-32); eCRCL 8 ML/MIN; eGFR 7 ML/MIN
[2024-04-07] MEDS: azithromycin/NS 500mg/250ml 250 ML IV SCH (04:09)
[2024-04-07] MEDS: K and/or MAG REPLACEMENT MC SCH (06:59)
[2024-04-07] MEDS: heparin, porcine 5000 units/ml vial SQ SCH (06:59)
[2024-04-07] MEDS ORDERED: HYDROcodone/acetaminophen 5mg/325mg tablet PO PRN (08:10)
[2024-04-07] MEDS: hydrALAZINE 20mg/ml inj. IV ONE (08:30)
[2024-04-07] MEDS: pantoprazole 40mg Tablet.DR PO SCH (08:36)
[2024-04-07] MEDS: aspirin 81mg tab.chew PO SCH (08:36)
[2024-04-07] MEDS: tamsulosin 0.4mg capsule PO SCH (08:39)
[2024-04-07] MEDS: EPOETIN ALFA-EPBX 20,000 UNIT/ML 1 ML MDV IV ONE (09:10)
[2024-04-07] MEDS: heparin 1,000unit/ml 10ml vial 10 ML IV ONE (09:10)
[2024-04-07] MEDS: heparin 1,000 units/ml 10ml inj IV ONE (09:10)
[2024-04-07] MEDS ORDERED: albumin (human) 25% 100ml IV 100 ML IV PRN (09:10)
[2024-04-07 09:26] LABS: HEMOGLOBIN A1C 5.4 % (4.5-6.2)
[2024-04-07 09:35] LABS: CHOL/HDL RATIO 2.4 (0.00-4.99); CHOLESTEROL 141 MG/DL (0-200); HDL CHOLESTEROL 59 MG/DL (35-60); LDL CHOLESTEROL 64 MG/DL (50-100); THYROID STIMULATING HORMONE 0.47 ulU/ml (0.34-4.50); TRIGLYCERIDES 65 MG/DL (20-135)
[2024-04-07 17:51] VITALS: BP 122/66; PULSE 78; RESP 18; TEMP 97.8; O2SAT 97
[2024-04-07 17:54] VITALS: RESP 18; O2SAT 96
[2024-04-07 18:00] VITALS: BP 108/49; PULSE 84; RESP 16; TEMP 97.8; O2SAT 93
[2024-04-07] MEDS: carVEDilol 12.5mg tablet PO SCH (20:12)
[2024-04-07] MEDS: simvastatin 20mg tablet PO SCH (20:13)
[2024-04-07] MEDS: traZODone 50mg tablet PO SCH (20:13)
[2024-04-07 22:00] VITALS: BP 107/69; PULSE 91; RESP 25; TEMP 97.6; O2SAT 100
[2024-04-08] VITALS (7 sets, daily range): BP systolic 108–158; BP diastolic 49–77; PULSE 72–88; RESP 16–26; TEMP 97–97.8; O2SAT 98–100
[2024-04-08 06:28] LABS: BASOPHILS % (AUTO) 0.5 % (0-1); EOSINOPHILS % (AUTO) 0.5 % (0-6); HEMOGLOBIN 10.7 g/dl (14.0-17.9); LYMPHOCYTES # (AUTO) 1.1 X10'3 (1.1-4.8); LYMPHOCYTES % (AUTO) 14.1 % (21-51); MEAN CORPUSCULAR HEMOGLOBIN 30.3 PG (27.0-31.0); MEAN CORPUSCULAR HGB CONC 33.5 g/dL (33.0-36.5); MEAN CORPUSCULAR VOLUME 90.4 FL (78-98); MEAN PLATELET VOLUME 6.6 FL (7.4-10.4); MONOCYTES % (AUTO) 12.9 % (2-12); NEUTROPHILS # (AUTO) 5.6 X10'3 (1.8-7.7); PLATELET COUNT 189 X10'3 (140-440); RED BLOOD COUNT 3.54 X10'6 (4.70-6.10); RED CELL DISTRIBUTION WIDTH 15.1 % (11.5-14.5); WHITE BLOOD COUNT 7.8 X10'3 (4.5-11.0)
[2024-04-08 06:43] LABS: ALBUMIN 3.3 G/DL (3.4-5.0); ANION GAP 7 (8-16); BLOOD UREA NITROGEN 32 MG/DL (7-18); BUN/CREATININE RATIO 5.6 (10.0-20.0); CALCIUM 8.7 MG/DL (8.5-10.1); CHLORIDE 103 MMOL/L (99-107); CREATININE 5.72 MG/DL (0.60-1.10); GLUCOSE 168 MG/DL (70-104); MAGNESIUM 2.1 MG/DL (1.5-2.4); PHOSPHORUS 2.5 MG/DL (2.3-4.5); POTASSIUM 4.4 MMOL/L (3.5-5.1); SODIUM 139 MMOL/L (135-145); TOTAL CARBON DIOXIDE 29.3 MMOL/L (24-32); eCRCL 11 ML/MIN; eGFR 10 ML/MIN
[2024-04-08] MEDS: CefTRIAXone/D5W-Rocephin 1gm 50 ML IV SCH (08:29)
[2024-04-08] MEDS: azithromycin/NS 500mg/250ml 250 ML IV SCH (08:29)
[2024-04-08] MEDS ORDERED: CEFD300C3 PO (14:54)
[2024-04-08] MEDS ORDERED: LACT1CAP26 PO (14:54)
[2024-04-08] MEDS ORDERED: AZIT250T27 PO (14:54)
[2024-04-09] VITALS (15 sets, daily range): BP systolic 94–175; BP diastolic 56–87; PULSE 69–84; RESP 12–18; TEMP 97.4–97.9; O2SAT 70–100
[2024-04-09] MEDS: hyDRALAzine 10mg tablet PO ONE ×2 (02:42→03:49)
[2024-04-09 06:57] LABS: BASOPHILS % (AUTO) 0.6 % (0-1); EOSINOPHILS % (AUTO) 0.7 % (0-6); HEMATOCRIT 32.8 % (42.0-52.0); HEMOGLOBIN 10.9 g/dl (14.0-17.9); LYMPHOCYTES # (AUTO) 1.4 X10'3 (1.1-4.8); LYMPHOCYTES % (AUTO) 19.3 % (21-51); MEAN CORPUSCULAR HEMOGLOBIN 30.4 PG (27.0-31.0); MEAN CORPUSCULAR HGB CONC 33.3 g/dL (33.0-36.5); MEAN CORPUSCULAR VOLUME 91.1 FL (78-98); MEAN PLATELET VOLUME 7.3 FL (7.4-10.4); MONOCYTES # (AUTO) 0.9 X10'3 (0-0.9); MONOCYTES % (AUTO) 12.7 % (2-12); NEUTROPHILS # (AUTO) 4.8 X10'3 (1.8-7.7); NEUTROPHILS % (AUTO) 66.7 % (42-75); PLATELET COUNT 174 X10'3 (140-440); RED CELL DISTRIBUTION WIDTH 14.8 % (11.5-14.5); WHITE BLOOD COUNT 7.2 X10'3 (4.5-11.0)
[2024-04-09 07:16] LABS: ALBUMIN 3.1 G/DL (3.4-5.0); ANION GAP 11 (8-16); BLOOD UREA NITROGEN 49 MG/DL (7-18); BUN/CREATININE RATIO 6.9 (10.0-20.0); CHLORIDE 101 MMOL/L (99-107); CREATININE 7.08 MG/DL (0.60-1.10); GLUCOSE 140 MG/DL (70-104); MAGNESIUM 2.3 MG/DL (1.5-2.4); PHOSPHORUS 3.7 MG/DL (2.3-4.5); SODIUM 137 MMOL/L (135-145); TOTAL CARBON DIOXIDE 25.2 MMOL/L (24-32); eCRCL 9 ML/MIN; eGFR 8 ML/MIN
[2024-04-09 07:20] LABS: POTASSIUM 4.8 MMOL/L (3.5-5.1)
[2024-04-09 08:13] LABS: INSULIN 3.3 uIU/mL (2.6-24.9)
[2024-04-09] MEDS ORDERED: CEFD300C3 PO (08:52)
[2024-04-09 09:08] LABS: C-PEPTIDE, SERUM 1.7 ng/mL (1.1-4.4)
[2024-04-09] MEDS: EPOETIN ALFA-EPBX 20,000 UNIT/ML 1 ML MDV IV ONE (14:49)
[2024-04-09] MEDS: heparin 1,000unit/ml 10ml vial 10 ML IV ONE (17:02)
[2024-04-09] MEDS: heparin 1,000 units/ml 10ml inj IV ONE (17:02)
[2024-04-09] MEDS: heparin 1,000 units/ml 10ml inj HE ONE (17:18)
[2024-04-10] VITALS (7 sets, daily range): BP systolic 132–184; BP diastolic 56–81; PULSE 73–80; RESP 12–22; TEMP 97.2–98.3; O2SAT 91–100
[2024-04-10 07:27] LABS: APTT 31 SECONDS (22-32); PROTHROMBIN TIME 10.8 SECONDS (9.0-12.0)
[2024-04-10 07:36] LABS: BASOPHILS % (AUTO) 0.8 % (0-1); EOSINOPHILS % (AUTO) 0.5 % (0-6); HEMATOCRIT 31.6 % (42.0-52.0); HEMOGLOBIN 10.6 g/dl (14.0-17.9); LYMPHOCYTES # (AUTO) 1.2 X10'3 (1.1-4.8); LYMPHOCYTES % (AUTO) 22.3 % (21-51); MEAN CORPUSCULAR HEMOGLOBIN 30.2 PG (27.0-31.0); MEAN CORPUSCULAR HGB CONC 33.5 g/dL (33.0-36.5); MEAN CORPUSCULAR VOLUME 90.1 FL (78-98); MEAN PLATELET VOLUME 6.9 FL (7.4-10.4); MONOCYTES # (AUTO) 0.8 X10'3 (0-0.9); MONOCYTES % (AUTO) 13.8 % (2-12); NEUTROPHILS # (AUTO) 3.4 X10'3 (1.8-7.7); NEUTROPHILS % (AUTO) 62.6 % (42-75); PLATELET COUNT 214 X10'3 (140-440); RED BLOOD COUNT 3.51 X10'6 (4.70-6.10); RED CELL DISTRIBUTION WIDTH 14.8 % (11.5-14.5); WHITE BLOOD COUNT 5.5 X10'3 (4.5-11.0)
[2024-04-10 07:56] LABS: ALBUMIN 3.2 G/DL (3.4-5.0); ANION GAP 11 (8-16); BLOOD UREA NITROGEN 32 MG/DL (7-18); BUN/CREATININE RATIO 5.9 (10.0-20.0); CALCIUM 8.8 MG/DL (8.5-10.1); CHLORIDE 101 MMOL/L (99-107); CREATININE 5.42 MG/DL (0.60-1.10); GLUCOSE 134 MG/DL (70-104); MAGNESIUM 2.1 MG/DL (1.5-2.4); PHOSPHORUS 3.6 MG/DL (2.3-4.5); POTASSIUM 4.5 MMOL/L (3.5-5.1); SODIUM 138 MMOL/L (135-145); TOTAL CARBON DIOXIDE 26.3 MMOL/L (24-32); eCRCL 12 ML/MIN; eGFR 11 ML/MIN
[2024-04-11] VITALS (8 sets, daily range): BP systolic 144–182; BP diastolic 68–100; PULSE 67–78; RESP 11–21; TEMP 97–98.2; O2SAT 99–100
[2024-04-11 07:06] LABS: BASOPHILS % (AUTO) 0.6 % (0-1); EOSINOPHILS % (AUTO) 0.4 % (0-6); HEMATOCRIT 30.1 % (42.0-52.0); HEMOGLOBIN 10.3 g/dl (14.0-17.9); LYMPHOCYTES # (AUTO) 1.2 X10'3 (1.1-4.8); LYMPHOCYTES % (AUTO) 18.7 % (21-51); MEAN CORPUSCULAR HEMOGLOBIN 30.7 PG (27.0-31.0); MEAN CORPUSCULAR HGB CONC 34.1 g/dL (33.0-36.5); MONOCYTES # (AUTO) 0.8 X10'3 (0-0.9); MONOCYTES % (AUTO) 12.7 % (2-12); NEUTROPHILS # (AUTO) 4.2 X10'3 (1.8-7.7); NEUTROPHILS % (AUTO) 67.6 % (42-75); PLATELET COUNT 228 X10'3 (140-440); RED BLOOD COUNT 3.35 X10'6 (4.70-6.10); RED CELL DISTRIBUTION WIDTH 14.6 % (11.5-14.5); WHITE BLOOD COUNT 6.2 X10'3 (4.5-11.0)
[2024-04-11 07:16] LABS: ANION GAP 10 (8-16); BLOOD UREA NITROGEN 47 MG/DL (7-18); BUN/CREATININE RATIO 6.4 (10.0-20.0); CALCIUM 8.4 MG/DL (8.5-10.1); CHLORIDE 101 MMOL/L (99-107); GLUCOSE 203 MG/DL (70-104); MAGNESIUM 2.1 MG/DL (1.5-2.4); PHOSPHORUS 4.1 MG/DL (2.3-4.5); POTASSIUM 4.1 MMOL/L (3.5-5.1); SODIUM 138 MMOL/L (135-145); eCRCL 9 ML/MIN; eGFR 7 ML/MIN
[2024-04-11] MEDS: lisinopril 5mg tablet PO SCH (08:07)
[2024-04-11] MEDS ORDERED: magnesium hydroxide 30ml (MOM) UD suspension PO PRN (12:15)
[2024-04-11] MEDS: heparin 1,000 units/ml 10ml inj IV ONE (13:14)
[2024-04-11] MEDS: heparin 1,000unit/ml 10ml vial 10 ML IV ONE (13:15)
[2024-04-11] MEDS: EPOETIN ALFA-EPBX 20,000 UNIT/ML 1 ML MDV IV ONE (13:15)
[2024-04-11] MEDS: NUT.TX.IMP.RENAL FXN,LAC-REDUC (Nepro) 237 ML VANILLA PO SCH (17:51)
[2024-04-12] VITALS (12 sets, daily range): BP systolic 98–190; BP diastolic 51–97; PULSE 73–80; RESP 14–19; TEMP 97–98.2; O2SAT 98–100
[2024-04-12 06:31] LABS: HBSAG SCREEN Negative (Negative); HEP B SURF AB Non Reactive (.)
[2024-04-12] MEDS: hydrALAZINE 20mg/ml inj. IV ONE (08:33)
[2024-04-12] MEDS ORDERED: lisinopril 5mg tablet PO SCH (08:50)
[2024-04-12 08:54] LABS: ANION GAP 15 (8-16); BLOOD UREA NITROGEN 56 MG/DL (7-18); BUN/CREATININE RATIO 6.8 (10.0-20.0); CALCIUM 8.6 MG/DL (8.5-10.1); CHLORIDE 101 MMOL/L (99-107); GLUCOSE 183 MG/DL (70-104); MAGNESIUM 2.1 MG/DL (1.5-2.4); PHOSPHORUS 4.8 MG/DL (2.3-4.5); POTASSIUM 4.3 MMOL/L (3.5-5.1); SODIUM 139 MMOL/L (135-145); TOTAL CARBON DIOXIDE 22.7 MMOL/L (24-32); eCRCL 8 ML/MIN; eGFR 7 ML/MIN
[2024-04-12] MEDS ORDERED: EPOETIN ALFA-EPBX 20,000 UNIT/ML 1 ML MDV IV ONE (10:10)
[2024-04-12] MEDS: heparin 1,000 units/ml 10ml inj IV ONE (10:51)
[2024-04-12] MEDS: heparin 1,000unit/ml 10ml vial 10 ML IV ONE (10:51)
== END 2024-04-12 14:30 | DRG 871 ==
LOC: ER 20:10 → ED HOLD 23:13 → EDBEDREQ 04-07 13:25 → PCU 3S 04-07 14:43
PROVIDERS: ADMIT Internal Medicine; ATTEND Family Medicine
PROC: 5A1D70Z Performance of Urinary Filtration, Intermittent, Less than 6 Hours Per Day (ICD-10-PCS; 2024-04-07)
PROC: 5A1D70Z Performance of Urinary Filtration, Intermittent, Less than 6 Hours Per Day (ICD-10-PCS; principal; 2024-04-09)
PROC: 5A1D70Z Performance of Urinary Filtration, Intermittent, Less than 6 Hours Per Day (ICD-10-PCS; 2024-04-12)
DX: A41.9 Sepsis, unspecified organism (principal); J15.69 Pneumonia due to other Gram-negative bacteria; N18.6 End stage renal disease; J15.9 Unspecified bacterial pneumonia; I12.0 Hypertensive chronic kidney disease with stage 5 chronic kidney disease or end stage renal disease; E27.49 Other adrenocortical insufficiency; E11.649 Type 2 diabetes mellitus with hypoglycemia without coma; I48.91 Unspecified atrial fibrillation; T38.3X5A Adverse effect of insulin and oral hypoglycemic [antidiabetic] drugs, initial encounter; D63.8 Anemia in other chronic diseases classified elsewhere; N40.0 Benign prostatic hyperplasia without lower urinary tract symptoms; E11.22 Type 2 diabetes mellitus with diabetic chronic kidney disease; Z79.82 Long term (current) use of aspirin; Z79.899 Other long term (current) drug therapy; Z88.8 Allergy status to other drugs, medicaments and biological substances; Z79.4 Long term (current) use of insulin; Z95.0 Presence of cardiac pacemaker; Z87.891 Personal history of nicotine dependence
CPT/HCPCS: 36415; 71045; 80048; 80053; 80061; 82948; 83036; 83525; 83605; 83735; 83880; 84100; 84145; 84443; 84681; 85025; 85610; 85730; 86706; 87040; 87081; 87340; 93005; 96365; 97161; 97530; 97535; 99291; A6213; A6449; A6590; E1594; G0257; G0378; J0360; J0456; J0696; J1644; J3490; J7030; J7040; J7050; Q4081